=== PATIENT | male | born 1960 | race Caucasian/White ===

== ENCOUNTER 2017-02-01 04:00 | Emergency (ER) | payer OTHER ==
--- NOTE | 2017-02-01 04:34 | PDOC ---
History of Present Illness - General Chief Complaint: Blood Pressure Problem Stated Complaint: HIGH BLOOD PRESSURE PROBLEM Time Seen by Provider: 02/01/17 04:12 History Source: Patient Exam Limitations: No Limitations - History of Present Illness Initial Comments: 02/01/17 04:29 56yo Male patient w/ PmHx: DM, HTN presents to ED c/o heart palpitations and high blood pressure. Patient states he woke up out of his sleep around 130am with palpitations. Patient states he check his B/P and it was elevated so he took his medications; Bystolic, Losartan-HCTZ, and ASA. Patient also took BS which was 149. Associated sweating. He denies n/v/d, CP, Abd pain, Back pain, Diff breathing, fever, or any other complaints at this time. Patient reports he has a cardiology appointment tomorrow morning. PCP- [facility]. Past History - Travel Traveled outside of the country in the last 30 days: No Close contact w/someone who was outside of country & ill: No - Past Medical History Allergies/Adverse Reactions: Allergies Allergy/AdvReac Type Severity Reaction Status Date / Time No Known Allergies Allergy Verified 02/01/17 04:20 Home Medications: Ambulatory Orders Aspirin [ASA -] 81 mg PO DAILY 02/01/17 Linagliptin/Metformin HCl [Jentadueto 2.5 mg-1000 mg Tab] 1 each PO BID Losartan/Hydrochlorothiazide [Losartan-Hctz 100-12.5 mg Tab] 1 each PO DAILY Nebivolol HCl [Bystolic] 10 mg PO DAILY 02/01/17 Diabetes: Yes HTN: Yes - Immunization History Immunization Up to Date: Yes - Psycho/Social/Smoking Cessation Hx Suicidal Ideation: No Smoking History: Unknown if ever smoked Hx Alcohol Use: No Drug/Substance Use Hx: No Substance Use Type: None Cardiac Specific PMH - Complaint Specific PMHX Abdominal Aortic Aneurysm: No Angina: No Cardiac Arrhythmia: No Cardiac Stent: No GERD: No Myocardial Infarction: No Pacemaker: No Pulmonary Embolus: No Valvular Heart Disease: No Peripheral Vascular Disease: No Review of Systems - Review of Systems Able to Perform ROS?: Yes Is the patient limited [place] proficient: No Constitutional: No: Chills, Fever HEENTM: No: Blurred Vision, Double Vision Respiratory: No: Cough, Orthopnea, Shortness of Breath, Stridor, Wheezing, Productive cough, Hemoptysis Cardiac (ROS): Yes: Palpitations. No: Chest Pain, Irregular Heart Rate, Lightheadedness, Syncope, Chest Tightness ABD/GI: No: Constipated, Diarrhea, Nausea, Poor Appetite, Poor Fluid Intake, Vomiting : No: Dysuria Musculoskeletal: No: Back Pain, Muscle Weakness Integumentary: No: Bruising, Erythema, Rash, Sweating Neurological: No: Headache, Numbness, Seizure, Tingling, Tremors, Weakness, Ataxia, Dizziness All Other Systems: Reviewed and Negative *Physical Exam - Vital Signs Last Vital Signs Temp Pulse Resp BP Pulse Ox 98.1 F 96 H 18 131/76 98 02/01/17 04:16 02/01/17 05:11 02/01/17 05:11 02/01/17 05:11 02/01/17 05:11 - Physical Exam General Appearance: Yes: Nourished, Appropriately Dressed. No: Apparent Distress, Mild Distress, Moderate Distress, Severe Distress Respiratory/Chest: positive: Lungs Clear, Normal Breath Sounds. negative: Chest Tender, Respiratory Distress, Accessory Muscle Use, Labored Respiration, Rapid RR Cardiovascular: positive: Regular Rhythm, Regular Rate. negative: Edema, JVD, Murmur Gastrointestinal/Abdominal: positive: Normal Bowel Sounds, Soft, Distended. negative: Tender, Flat, Guarding, Rebound, Tenderness, Hernia Musculoskeletal: positive: Normal Inspection. negative: CVA Tenderness, Vertebral Tenderness Extremity: positive: Normal Capillary Refill, Normal Inspection, Normal Range of Motion Integumentary: positive: Normal Color, Dry, Warm Neurologic: positive: shoe associate II-XII NML intact, Fully Oriented, Alert, Normal Mood/ Affect, Normal Response, Motor Strength 5/5 Heart Score/ECG Review - History History: Slightly suspicious - Electrocardiogram EKG: Normal - Age Age: 45-65 - Risk Factors Risk Factors Heart Score: Yes Hx Hypertension, Yes Hx Diabetes Based on the list above the patient has:: 1-2 risk factors - Troponin Troponin: </= normal limit - Score Heart Score - Total: 2 - ECG Impressions Normal ECG: Yes Non-specific ST Elevation: No Ischemic Changes: No Bradycardia: No Torsades sisi Pointes: No WPW: No ED Treatment Course - LABORATORY CBC & Chemistry Diagram: 02/01/17 04:36 02/01/17 04:50 - ADDITIONAL ORDERS Additional order review: Laboratory Results 02/01/17 02/01/17 04:50 04:50 Sodium 140 Potassium 4.4 Chloride 99 Carbon Dioxide 29 Anion Gap 12 BUN 11 Creatinine 0.9 Creat Clearance w eGFR > 60 Random Glucose 117 H Calcium 9.1 Total Bilirubin 0.2 AST 19 ALT 29 Alkaline Phosphatase 80 Creatine Kinase 182 CK-MB (CK-2) Rel Index Cancelled Troponin I < 0.02 Total Protein 7.8 Albumin 4.2 02/01/17 04:36 RBC 4.62 MCV 93.5 MCHC 34.0 RDW 13.5 MPV 7.3 L Neutrophils % 72.5 Lymphocytes % 16.9 Monocytes % 8.8 Eosinophils % 1.4 Basophils % 0.4 *DC/Admit/Observation/Transfer Diagnosis at time of Disposition: Heart palpitations Hypertension Qualifiers: Hypertension type: other secondary hypertension Qualified Code(s): I15.8 - Other secondary hypertension - Discharge Dispostion Disposition: HOME Condition at time of disposition: Improved Admit: No - Patient Instructions Printed Discharge Instructions: DI for High Blood Pressure Additional Instructions: FOLLOW UP WITH DR. SAUNDERS THIS WEEK. CALL TO SCHEDULE APPOINTMENT. 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 RETURN IF YOUR SYMPTOMS GET WORSE, OR ANY CONCERNS FOR FURTHER EVALUATION. CONTINUE TO TAKE YOUR MEDICATIONS PRESCRIBED. SEGUIMIENTO CON EL DR. SAUNDERS ESTA SEMANA. LLAMAR PARA CALIFICAR LA ANDREW. TAMBI N, MANTENGA BENAVIDES NOMBRAMIENTO CON BENAVIDES CARDILOGO MAANA. VUELVA SI SUSY SNTOMAS ROSE PELIGROSOS, O CUALESQUIERA PREOCUPACIONES PARA DAYANA EVALUACIN ADICIONAL. CONTINE TOMANDO SUSY MEDICAMENTOS B[place] SE PRESCRIBE. Print Language: TURKMEN
[2017-02-01 04:39] VITALS: TEMP 98.1; BMI 29.7
[2017-02-01 04:59] LABS: BASOPHIL 0.4 % (0-2.0); EOSINOPHIL 1.4 % (0-4.5); MCH 31.8 pg (25.7-33.7); MEAN CELL VOLUME 93.5 fl (80-96); MEAN PLT VOLUME 7.3 fl (7.5-11.1); NEUTROPHILS 72.5 % (42.8-82.8); PLATELET COUNT 288 K/MM3 (134-434); RDW 13.5 % (11.9-15.9); WHITE BLOOD COUNT 11.1 K/mm3 (4.0-10.0)
[2017-02-01 05:24] LABS: ALBUMIN 4.2 g/dl (3.4-5.0); ANION GAP 12 (8-16); BILIRUBIN,TOTAL 0.2 mg/dL (0.2-1.0); CALCIUM 9.1 mg/dL (8.5-10.1); CO2 29 mmol/L (21-32); CREATININE 0.9 mg/dL (0.7-1.3); GLUCOSE,RANDOM 117 mg/dL (74-106); SGOT/AST 19 U/L (15-37); SGPT/ALT 29 U/L (12-78); TOT PROT 7.8 g/dl (6.4-8.2)
[2017-02-01 05:26] LABS: ALK PHOS 80 U/L (45-117); TROPONIN I < 0.02 ng/ml (0.00-0.05)
[2017-02-01 05:41] VITALS: BP 140/85; PULSE 94
--- NOTE | 2017-02-01 12:36 | EKG ---
Test Reason : Blood Pressure : / mmHG Vent. Rate : 100 BPM Atrial Rate : 100 BPM P-R Int : 202 ms QRS Dur : 092 ms QT Int : 330 ms P-R-T Axes : 046 -45 005 degrees QTc Int : 425 ms NORMAL SINUS RHYTHM LEFT AXIS DEVIATION ABNORMAL ECG NO PREVIOUS ECGS AVAILABLE Confirmed by IGNACIO BENTON MD ([id number]) on 02/01/2017 12:36:12 PM Referred By: Confirmed By:IGNACIO BENTON MD
== END 2017-02-01 05:57 | disposition home or self-care (01) ==
LOC: JER 04:00
DX: I10 Essential (primary) hypertension (principal); R00.2 Palpitations; E11.9 Type 2 diabetes mellitus without complications; Z79.84 Long term (current) use of oral hypoglycemic drugs
CPT/HCPCS: 36415; 80053; 82550; 82553; 84484; 85025; 93005; 93010; 99284-25